=== PATIENT | female | born 1975 | race Caucasian/White ===

== ENCOUNTER 2016-11-21 15:52 | Outpatient (CLI) ==
--- NOTE | 2016-11-21 16:56 | DI ---
EXAM: Three views of the cervical spine HISTORY: Pain and numbness. COMPARISON: None FINDINGS: There is no acute compression fracture or subluxation. The facets and posterior processes are unremarkable. The prevertebral soft tissues are unremarkable. The odontoid process is unremar kable. There is no lytic or blastic lesion. There is mild narrowing at C5-C6. IMPRESSION: No acute abnormality or subluxation with mild narrowing at C5-C6.
== END 2016-11-21 15:53 | disposition home or self-care (01) ==
LOC: RAD 15:52
PROVIDERS: ATTEND Internal Medicine
DX: R51 Headache (principal); M54.2 Cervicalgia; R20.0 Anesthesia of skin

== ENCOUNTER 2017-02-27 10:49 | Outpatient (CLI) ==
--- NOTE | 2017-02-27 11:19 | DI ---
EXAM: Two views of the chest. History: Cough and fever. Comparison: Chest radiograph 01/18/2015 Findings: Heart size is within normal limits. No pleural fluid and no pneumothorax. No focal cons olidation. No acute osseous abnormalities. Impression: No acute cardiopulmonary process.
[2017-02-27 11:26] LABS: FLU INTERNAL QC INTERNAL QC VALID; RAPID FLU A NEGATIVE (NEGATIVE); RAPID FLU B NEGATIVE (NEGATIVE)
== END 2017-02-27 10:50 | disposition home or self-care (01) ==
LOC: RAD 10:49
PROVIDERS: ATTEND Emergency Medicine
DX: R05 Cough (principal); R50.9 Fever, unspecified
CPT/HCPCS: 87804